=== PATIENT | male | born 1985 | race African-American/Black ===

== ENCOUNTER 2023-08-18 18:04 | Emergency (ER) | payer OTHER ==
[2023-08-18 18:11] VITALS: BP 154/93; PULSE 104; RESP 18; TEMP 98; BMI 35.7
[2023-08-18] MEDS ORDERED: KETOROLAC TROMETHAMINE 30 MG/1 ML VIAL ONE (19:03)
[2023-08-18] MEDS ORDERED: ACETAMINOPHEN 500 MG TABLET (FP) ONE (19:03)
[2023-08-18] MEDS ORDERED: LIDOCAINE 4% PATCH TP ONE (19:27)
[2023-08-18] MEDS: ACETAMINOPHEN 500 MG TABLET (FP) PO ONE (19:33)
[2023-08-18] MEDS: KETOROLAC TROMETHAMINE 30 MG/1 ML VIAL IM ONE (19:34)
[2023-08-18] MEDS: LIDOCAINE 4% PATCH TP ONE (19:34)
[2023-08-18] MEDS ORDERED: LIDOCAINE PATCH REMOVAL MC SCH (22:00)
== END 2023-08-18 21:34 | disposition home or self-care (01) ==
LOC: JERFT 18:04
PROC: 3E0233Z Introduction of Anti-inflammatory into Muscle, Percutaneous Approach (ICD-10-PCS; principal; 2023-08-18)
DX: M54.6 Pain in thoracic spine (principal); M25.562 Pain in left knee; V49.40XA Driver injured in collision with unspecified motor vehicles in traffic accident, initial encounter
CPT/HCPCS: 72070-TC-FY; 73560-TC-LT-FY; 99284-25